=== PATIENT | female | born 2000 | race Caucasian/White ===

== ENCOUNTER 2024-01-14 07:25 | Emergency (ER) | payer OTHER ==
[~2024-01-14] VITALS: Ht 165.1 cm; Wt 134.0 kg
[2024-01-14 07:34] VITALS: TEMP 97.9
[2024-01-14] MEDS ORDERED: fentaNYL 50 MCG/ML 2 ML VIAL IV ONE (08:00)
[2024-01-14] MEDS ORDERED: Ondansetron 4 MG/2 ML VIAL IV ONE (08:00)
[2024-01-14] MEDS ORDERED: Pantoprazole 40 MG in NS 10 ML IV ONE (08:00)
[2024-01-14 08:04] LABS: BASO # 0.1 K/mm3 (0.0-0.2); BASO % 0.8 % (0.0-2.0); EOS # 0.1 K/mm3 (0.0-0.7); EOS % 1.7 % (0.0-4.0); GRAN # 4.7 K/mm3 (1.4-6.5); GRAN % 60.4 % (42.2-75.2); HEMATOCRIT 39.5 % (37.0-47.0); HEMOGLOBIN 12.7 g/dl (12.5-16.0); LYMPH # 2.3 K/mm3 (1.2-3.4); LYMPH % 28.8 % (20.0-51.0); MEAN CELL VOLUME 86 fl (80.0-100.0); MEAN CORPUSCULAR HEMOGLOBIN 28 pg (27-31); MEAN CORPUSCULAR HGB CONC 32 g/dl (33.0-37.0); MEAN PLATELET VOLUME 9.6 fl (7.4-10.4); MONO # 0.6 K/mm3 (0.1-0.6); MONO % 7.8 % (1.7-9.3); PLATELET COUNT 247 K/mm3 (130-400); RED BLOOD COUNT 4.59 M/mm3 (4.10-5.30); REDCELL DISTRIBUTION WIDTH-CV 12.5 % (11.5-14.5)
[2024-01-14 08:27] LABS: ALBUMIN 3.5 g/dL (3.5-5.0); BILIRUBIN,TOTAL 0.4 mg/dL (0.2-1.2); CALCIUM 9.1 mg/dL (8.4-10.2); CREATININE, serum 0.8 mg/dL (0.57-1.11); POTASSIUM 4.4 mEq/L (3.5-4.5); TOTAL PROTEIN 7.2 g/dl (6.2-8.1)
[2024-01-14] MEDS ORDERED: Iohexol 300 - 100 ML VIAL IV ONE (08:46)
[2024-01-14] MEDS ORDERED: NS 100 ML IV SCH (08:47)
[2024-01-14] MEDS ORDERED: droPERidol 2.5 MG/ML 2 ML VIAL IV ONE (09:30)
[2024-01-14] MEDS ORDERED: REGLAN 10MG10 MG/TAB PO (09:58)
[2024-01-14 10:11] VITALS: BP 144/87; PULSE 66
== END 2024-01-14 10:12 | disposition home or self-care (01) ==
LOC: COL.ER 07:25 → EDBD 07:27 → COL.ER 10:12
PROVIDERS: Emergency Medicine
DX: R11.2 Nausea with vomiting, unspecified (principal); R10.10 Upper abdominal pain, unspecified
CPT/HCPCS: C9113; J1790; J2405; J3010; Q9967